=== PATIENT | female | born 1965 | race African-American/Black ===

== ENCOUNTER 2016-12-12 01:47 | Emergency (ER) | payer MEDICARE, MEDICAID ==
[~2016-12-12] VITALS: Ht 177.8 cm; Wt 181.0 kg
[~2016-12-12 01:47] MED LIST: ESCI10TA; LISI10TA5; MOME13HF2; PROVENTIL
[2016-12-12] MEDS ORDERED: MORPHINE SULFATE 4 MG/ML CPJ (NOT FOR IM USE) IV STA (01:57)
[2016-12-12] MEDS ORDERED: METHYLPREDNISOLONE SOD SUCC 125 MG/2 ML VIAL IV STA (01:57)
[2016-12-12] MEDS ORDERED: SODIUM CHLORIDE 0.9% 1,000 ML IV ONE (01:57)
[2016-12-12] MEDS ORDERED: ONDANSETRON HCL 4MG/2ML VIAL IV STA (01:57)
[2016-12-12] MEDS ORDERED: ALBUTEROL (0.083%) 2.5MG/3ML NEB HHN STA (01:57)
[2016-12-12] MEDS ORDERED: IPRATROPIUM BROMIDE (0.02%) 0.5MG/2.5ML NEB HHN STA (01:57)
[2016-12-12] MEDS ORDERED: LORAZEPAM 2MG/ML CPJ IV ONE (02:00)
[2016-12-12] MEDS ORDERED: ALBUTEROL (0.083%) 2.5MG/3ML NEB ONE (02:03)
[2016-12-12] MEDS ORDERED: IPRATROPIUM BROMIDE (0.02%) 0.5MG/2.5ML NEB ONE (02:03)
[2016-12-12 02:18] LABS: BASOPHILS % 1.1 % (0.0-2.0); EOSINOPHILS % 2.2 % (0.0-5.0); HEMOGLOBIN. 12.9 g/dL (12.0-16.0); LYMPHOCYTES % 40.6 % (20.0-50.0); MEAN CORPUSCULAR HEMOGLOBIN 27.6 pg (28.0-32.0); MEAN CORPUSCULAR HGB CONC 32.1 g/dL (31.0-37.0); MEAN CORPUSCULAR VOLUME 85.9 fL (81.0-99.0); MEAN PLATELET VOLUME 7.8 fl (7.4-10.4); NEUTROPHILS % 49.1 % (40.0-76.0); PLATELET 339 x1000/uL (130-400); RED BLOOD CELL COUNT 4.66 mill/uL (4.2-5.4); RED CELL DISTRIBUTION WIDTH 14.8 % (11.6-14.6); WHITE BLOOD COUNT 11.4 x1000/uL (4.5-11.0)
[2016-12-12 02:28] LABS: ALANINE AMINOTRANSFERASE 19 IU/L (13-61); ALBUMIN 3.5 g/dL (3.4-5.0); ANION GAP 12; CARBON DIOXIDE 28 mEq/L (21-32); CHLORIDE 107 mEq/L (98-107); INDEX HEMOLYSI 1 (1-3); INDEX ICTERIC 1 (1-4); INDEX LIPEMIC 1 (1-3); UREA NITROGEN BLOOD 20 mg/dL (7-21); eGFR > 60 mL/min (>60)
[2016-12-12 03:45] VITALS: BP 147/73
== END 2016-12-12 03:45 | disposition home or self-care (01) ==
LOC: ER 01:47
DX: J45.901 Unspecified asthma with (acute) exacerbation (principal); M54.5 Low back pain; I10 Essential (primary) hypertension; F32.9 Major depressive disorder, single episode, unspecified; Z90.49 Acquired absence of other specified parts of digestive tract
CPT/HCPCS: 36415; 71010; 80053; 85025; 94640; 96361; 96374; 96375; 99285; J2060; J2270; J2405; J2930; J7030; J7611

== ENCOUNTER 2017-09-27 06:23 | Emergency (ER) | payer MEDICARE, MEDICAID ==
[~2017-09-27] VITALS: Ht 157.5 cm; Wt 185.0 kg
[2017-09-27] MEDS ORDERED: IBUPROFEN 600MG TABLET PO ONE (09:00)
[2017-09-27] MEDS ORDERED: ACETAMINOPHEN 500MG TABLET PO ONE (09:00)
[2017-09-27 10:04] VITALS: BP 136/73
== END 2017-09-27 10:09 | disposition home or self-care (01) ==
LOC: ER 06:23
DX: H65.92 Unspecified nonsuppurative otitis media, left ear (principal); H57.8 Other specified disorders of eye and adnexa; R09.89 Other specified symptoms and signs involving the circulatory and respiratory systems; I10 Essential (primary) hypertension; F32.9 Major depressive disorder, single episode, unspecified; J45.909 Unspecified asthma, uncomplicated; Z88.8 Allergy status to other drugs, medicaments and biological substances
CPT/HCPCS: 99283

== ENCOUNTER 2022-04-04 17:14 | Inpatient (IN) | payer MEDICARE, MEDICAID ==
[~2022-04-04] VITALS: Ht 157.5 cm; Wt 213.6 kg
[~2022-04-04 17:14] MED LIST changes: +LISI10TA26; -LISI10TA5
[2022-04-04] MEDS ORDERED: METHYLPREDNISOLONE SOD SUCC 125 MG/2 ML VIAL IV STA (17:27)
[2022-04-04] MEDS ORDERED: IPRATROPIUM BROMIDE (0.02%) 0.5MG/2.5ML NEB HHN STA (17:27)
[2022-04-04] MEDS ORDERED: MAGNESIUM 2 G PREMIX 50 ML IV ONE (17:30)
[2022-04-04] MEDS: ALBUTEROL (0.083%) 2.5MG/3ML NEB HHN SCH ×3 (17:30→19:29)
[2022-04-04 17:47] LABS: BASOPHILS % 1.3 % (0.0-2.0); EOSINOPHILS % 1.6 % (0.0-5.0); HEMATOCRIT. 44.1 % (36.0-48.0); LYMPHOCYTES % 21.2 % (20.0-50.0); MEAN CORPUSCULAR HEMOGLOBIN 29.5 pg (28.0-32.0); MEAN CORPUSCULAR VOLUME 92.8 fL (81.0-99.0); MONOCYTES % 6.2 % (2.0-8.0); NEUTROPHILS % 69.7 % (40.0-76.0); PLATELET 228 x1000/uL (130-400); RED BLOOD CELL COUNT 4.75 mill/uL (4.2-5.4); RED CELL DISTRIBUTION WIDTH 17.4 % (11.6-14.6)
[2022-04-04 17:53] LABS: CHLORIDE 104 mEq/L (98-107)
[2022-04-04] MEDS ORDERED: FUROSEMIDE 40MG/4ML VIAL IVP ONE (18:30)
[2022-04-04] MEDS ORDERED: ACETAMINOPHEN 325MG TABLET PO PRN ×2 (19:30)
[2022-04-04] MEDS ORDERED: NITROGLYCERIN 0.4MG TABLET SL SL PRN (19:30)
[2022-04-04] MEDS ORDERED: METHYLPREDNISOLONE SOD SUCC 125 MG/2 ML VIAL IV NR (19:30)
[2022-04-04] MEDS ORDERED: MAGNESIUM 2 G PREMIX 50 ML IV NR (19:30)
[2022-04-04] MEDS ORDERED: FUROSEMIDE 40MG/4ML VIAL IVP NR (19:30)
[2022-04-04] MEDS ORDERED: CLONIDINE 0.1MG TABLET PO PRN (19:30)
[2022-04-04] MEDS ORDERED: ONDANSETRON HCL 4MG/2ML INJ IV PRN (19:30)
[2022-04-04] MEDS ORDERED: NA PHOS,M-B/NA PHOS,DI-BA ENEMA 118ML PR PRN (19:30)
[2022-04-04] MEDS ORDERED: IPRATROPIUM/ALBUTEROL 0.5-3(2.5)MG/3ML NEB NEB PRN (19:30)
[2022-04-04] MEDS ORDERED: MAGNESIUM/ALUMINUM HYDROXIDE/SIMETHICONE 30ML UDC PO PRN (19:30)
[2022-04-04] MEDS ORDERED: GUAIFENESIN 200MG/10ML SUGAR FREE UDC PO PRN (19:30)
[2022-04-04 20:11] LABS: ETHANOL BLOOD < 10 mg/dL; HDL CHOLESTEROL 33 mg/dL (40-59); LDL CHOLESTEROL 40 mg/dL (5-100); TOTAL IRON BINDING CAPACITY 381 ug/dL (250-450)
[2022-04-04 20:30] LABS: FOLIC ACID (FOLATE) SERUM 0.5 ng/mL (>5.38)
[2022-04-04] MEDS ORDERED: ENOXAPARIN 30MG/0.3ML SYR SUBCUT SCH (21:00)
[2022-04-04] MEDS: LISINOPRIL 20MG TABLET PO SCH (21:00)
[2022-04-04 21:08] LABS: *AMPHETAMINES SCREEN URINE NEGATIVE (NEGATIVE); *BARBITURATES SCREEN URINE NEGATIVE (NEGATIVE); *BENZODIAZEPINES SCREEN URINE NEGATIVE (NEGATIVE); *COCAINE SCREEN URINE NEGATIVE (NEGATIVE); CANNABINOID URINE SCREEN NEGATIVE (NEGATIVE); METHADONE URINE SCREEN NEGATIVE (NEGATIVE); OPIATES URINE SCREEN NEGATIVE (NEGATIVE); PHENCYCLIDINE URINE SCREEN NEGATIVE (NEGATIVE)
[2022-04-04] MEDS: FAMOTIDINE 20MG TABLET PO SCH (21:53)
[2022-04-04] MEDS: SPIRONOLACTONE 25MG TABLET PO SCH (21:53)
[2022-04-04 23:45] LABS: CREATINE KINASE MB FRACTION 1.7 ng/mL (0.5-3.6)
[2022-04-05] MEDS: KETOROLAC 15MG/ML VIAL IV PRN (04:40)
[2022-04-05 07:00] LABS: EOSINOPHILS % 1.8 % (0.0-5.0); HEMOGLOBIN. 13.2 g/dL (12.0-16.0); LYMPHOCYTES % 16.9 % (20.0-50.0); MEAN CORPUSCULAR HEMOGLOBIN 29.7 pg (28.0-32.0); MEAN CORPUSCULAR VOLUME 92.7 fL (81.0-99.0); MONOCYTES % 8.9 % (2.0-8.0); NEUTROPHILS % 71.4 % (40.0-76.0); PLATELET 211 x1000/uL (130-400); RED BLOOD CELL COUNT 4.43 mill/uL (4.2-5.4); RED CELL DISTRIBUTION WIDTH 16.9 % (11.6-14.6)
[2022-04-05 07:16] LABS: CREATINE KINASE MB FRACTION 1.9 ng/mL (0.5-3.6); PHOSPHORUS 4.2 mg/dL (2.5-4.9)
[2022-04-05] MEDS: LISINOPRIL 20MG TABLET PO SCH ×2 (09:00→21:32)
[2022-04-05 11:15] VITALS: BP 102/53
[2022-04-05 11:33] VITALS: BP 102/53
[2022-04-05] MEDS: IPRATROPIUM/ALBUTEROL 0.5-3(2.5)MG/3ML NEB HHN SCH ×2 (12:36→19:51)
[2022-04-05] MEDS: BUDESONIDE 0.5MG/2ML NEB HHN SCH ×2 (12:36→19:51)
[2022-04-05] MEDS: FAMOTIDINE 20MG TABLET PO SCH ×2 (14:03→21:33)
[2022-04-05] MEDS: SPIRONOLACTONE 25MG TABLET PO SCH ×2 (14:03→21:32)
[2022-04-05] MEDS: ASPIRIN 325MG EC TABLET PO SCH (14:03)
[2022-04-05] MEDS: ENOXAPARIN 40MG/0.4ML SYR SUBCUT SCH ×2 (14:03→21:31)
[2022-04-05] MEDS: FUROSEMIDE 40MG/4ML VIAL IVP SCH ×2 (14:05→21:31)
[2022-04-05 16:30] VITALS: BP 110/58
[2022-04-05] MEDS: MONTELUKAST SODIUM 10MG TABLET PO SCH (17:24)
[2022-04-05 20:00] VITALS: BP 114/57
[2022-04-06] VITALS: BP 107/58
[2022-04-06] MEDS: KETOROLAC 15MG/ML VIAL IV PRN (00:05)
[2022-04-06] MEDS: ZOLPIDEM TARTRATE 5MG TABLET PO PRN ×2 (00:13→22:20)
[2022-04-06] MEDS: IPRATROPIUM/ALBUTEROL 0.5-3(2.5)MG/3ML NEB HHN SCH ×4 (01:10→20:12)
[2022-04-06 04:00] VITALS: BP 107/66
[2022-04-06 06:17] LABS: CHLORIDE 96 mEq/L (98-107)
[2022-04-06] MEDS: BUDESONIDE 0.5MG/2ML NEB HHN SCH ×2 (07:58→20:09)
[2022-04-06 08:00] VITALS: BP 110/71
[2022-04-06] MEDS: LISINOPRIL 20MG TABLET PO SCH ×3 (09:00→20:31)
[2022-04-06] MEDS: ENOXAPARIN 40MG/0.4ML SYR SUBCUT SCH ×2 (09:00→20:29)
[2022-04-06] MEDS: FUROSEMIDE 40MG/4ML VIAL IVP SCH ×2 (11:42→20:29)
[2022-04-06] MEDS: SPIRONOLACTONE 25MG TABLET PO SCH ×2 (11:43→20:30)
[2022-04-06] MEDS: FAMOTIDINE 20MG TABLET PO SCH ×2 (11:43→20:30)
[2022-04-06] MEDS: ASPIRIN 325MG EC TABLET PO SCH (11:44)
[2022-04-06 12:00] VITALS: BP 115/69
[2022-04-06 16:00] VITALS: BP 120/72
[2022-04-06] MEDS: MONTELUKAST SODIUM 10MG TABLET PO SCH (18:49)
[2022-04-06 20:00] VITALS: BP 100/69
[2022-04-07] VITALS: BP 99/57
[2022-04-07] MEDS: IPRATROPIUM/ALBUTEROL 0.5-3(2.5)MG/3ML NEB HHN SCH ×4 (02:10→21:00)
[2022-04-07 04:00] VITALS: BP 101/60
[2022-04-07 08:00] VITALS: BP 108/57
[2022-04-07] MEDS: BUDESONIDE 0.5MG/2ML NEB HHN SCH ×2 (08:59→20:59)
[2022-04-07] MEDS: FAMOTIDINE 20MG TABLET PO SCH ×2 (10:49→21:22)
[2022-04-07] MEDS: SPIRONOLACTONE 25MG TABLET PO SCH ×2 (10:52→21:22)
[2022-04-07] MEDS: ASPIRIN 325MG EC TABLET PO SCH (10:53)
[2022-04-07] MEDS: ENOXAPARIN 40MG/0.4ML SYR SUBCUT SCH ×2 (10:58→21:22)
[2022-04-07] MEDS: LISINOPRIL 20MG TABLET PO SCH ×2 (10:58→21:00)
[2022-04-07] MEDS: FUROSEMIDE 40MG/4ML VIAL IVP SCH ×2 (11:06→21:22)
[2022-04-07 16:00] VITALS: BP 105/66
[2022-04-07] MEDS: MONTELUKAST SODIUM 10MG TABLET PO SCH (17:56)
[2022-04-07 20:00] VITALS: BP 99/59
[2022-04-08] VITALS: BP 99/60
[2022-04-08] MEDS: IPRATROPIUM/ALBUTEROL 0.5-3(2.5)MG/3ML NEB HHN SCH ×4 (01:49→21:48)
[2022-04-08 04:00] VITALS: BP 99/56
[2022-04-08] MEDS: DOCUSATE SODIUM 100MG CAPSULE PO PRN ×2 (06:23→14:05)
[2022-04-08 07:40] VITALS: BP 103/63
[2022-04-08] MEDS: BUDESONIDE 0.5MG/2ML NEB HHN SCH (07:42)
[2022-04-08] MEDS ORDERED: FURO-151 MT (08:48)
[2022-04-08] MEDS ORDERED: REV20 MT (08:48)
[2022-04-08] MEDS ORDERED: SPIR25TA MT (08:48)
[2022-04-08] MEDS ORDERED: FOLI-43 MT (08:48)
[2022-04-08] MEDS ORDERED: LISI10TA26 MT (08:48)
[2022-04-08] MEDS ORDERED: FOLIC ACID 1MG TABLET PO SCH (09:00)
[2022-04-08] MEDS: LISINOPRIL 20MG TABLET PO SCH ×2 (09:00→21:00)
[2022-04-08] MEDS: FAMOTIDINE 20MG TABLET PO SCH ×2 (09:39→20:34)
[2022-04-08] MEDS: ASPIRIN 325MG EC TABLET PO SCH ×2 (09:39→09:42)
[2022-04-08] MEDS: SPIRONOLACTONE 25MG TABLET PO SCH ×3 (09:39→20:34)
[2022-04-08] MEDS: FUROSEMIDE 40MG/4ML VIAL IVP SCH ×2 (09:53→20:34)
[2022-04-08] MEDS: ENOXAPARIN 40MG/0.4ML SYR SUBCUT SCH ×2 (09:54→20:35)
[2022-04-08] MEDS ORDERED: FOLIC ACID 1 MG in SODIUM CHLORIDE 0.9% 500 ML IV NR (10:30)
[2022-04-08 10:40] LABS: BG BASE EXCESS 18.5 mmol/L (-2.0-2.0); BG CARBOXYHEMOGLOBIN 1.6 % (0.5-1.5); BG DEOXYHEMOGLOBIN 32.9 % (0.0-5.0); BG FRACTION INSPIRED OXYGEN 21; BG HCO3 ACT 45.8 mmol/L (22.0-26.0); BG METHEMOGLOBIN 0.3 % (0.0-1.5); BG OXYGEN SATURATION 66.5 % (92.0-98.5); BG OXYHEMOGLOBIN 65.2 % (94.0-97.0); BG PCO2 64.5 mmHg (35.0-45.0); BG PH 7.469 (7.350-7.450); BG PO2 32.4 mmHg (75.0-100.0); BG TOTAL HEMOGLOBIN 13.6 g/dL (12.0-18.0); BG VENT MODE ROOM AIR
[2022-04-08 12:00] VITALS: BP 108/58
[2022-04-08 15:44] VITALS: BP 110/60
[2022-04-08] MEDS: MONTELUKAST SODIUM 10MG TABLET PO SCH (17:57)
[2022-04-08 20:00] VITALS: BP 92/53
[2022-04-09] VITALS: BP 104/52
[2022-04-09] MEDS: IPRATROPIUM/ALBUTEROL 0.5-3(2.5)MG/3ML NEB HHN SCH ×5 (01:53→21:31)
[2022-04-09 04:00] VITALS: BP 104/53
[2022-04-09 08:00] VITALS: BP 110/57
[2022-04-09] MEDS: FUROSEMIDE 40MG/4ML VIAL IVP SCH ×2 (09:33→20:45)
[2022-04-09] MEDS: SPIRONOLACTONE 25MG TABLET PO SCH ×2 (09:33→20:46)
[2022-04-09] MEDS: FAMOTIDINE 20MG TABLET PO SCH ×2 (09:33→20:46)
[2022-04-09] MEDS: ENOXAPARIN 40MG/0.4ML SYR SUBCUT SCH ×2 (09:33→20:46)
[2022-04-09] MEDS: FOLIC ACID 1MG TABLET PO SCH (09:33)
[2022-04-09] MEDS: LISINOPRIL 20MG TABLET PO SCH ×2 (09:34→20:57)
[2022-04-09 12:00] VITALS: BP 97/49
[2022-04-09] MEDS: BUDESONIDE 0.5MG/2ML NEB HHN SCH ×2 (13:46→21:31)
[2022-04-09] MEDS ORDERED: BISACODYL 5MG TABLET PO NR (15:00)
[2022-04-09] MEDS ORDERED: DOCUSATE SODIUM 250MG CAPSULE PO NR (15:00)
[2022-04-09 15:54] LABS: BG BASE EXCESS 18.5 mmol/L (-2.0-2.0); BG CARBOXYHEMOGLOBIN 1.6 % (0.5-1.5); BG DEOXYHEMOGLOBIN 28.2 % (0.0-5.0); BG FRACTION INSPIRED OXYGEN 21; BG HCO3 ACT 46.1 mmol/L (22.0-26.0); BG METHEMOGLOBIN 0.2 % (0.0-1.5); BG OXYGEN SATURATION 71.3 % (92.0-98.5); BG PCO2 66.3 mmHg (35.0-45.0); BG PO2 35.6 mmHg (75.0-100.0); BG SAMPLE SITE LEFT RADIAL; BG VENT MODE ROOM AIR
[2022-04-09 16:00] VITALS: BP 105/59
[2022-04-09] MEDS: MONTELUKAST SODIUM 10MG TABLET PO SCH (16:38)
[2022-04-09 20:00] VITALS: BP 96/48
[2022-04-10] VITALS: BP 95/51
[2022-04-10] MEDS: IPRATROPIUM/ALBUTEROL 0.5-3(2.5)MG/3ML NEB HHN SCH ×4 (02:30→21:28)
[2022-04-10 04:00] VITALS: BP 115/61
[2022-04-10] MEDS: BUDESONIDE 0.5MG/2ML NEB HHN SCH ×2 (07:35→21:27)
[2022-04-10 08:00] VITALS: BP 90/54
[2022-04-10] MEDS: LISINOPRIL 20MG TABLET PO SCH ×2 (09:00→20:09)
[2022-04-10] MEDS: FAMOTIDINE 20MG TABLET PO SCH ×2 (09:55→20:26)
[2022-04-10] MEDS: FOLIC ACID 1MG TABLET PO SCH (09:55)
[2022-04-10] MEDS: ASPIRIN 325MG EC TABLET PO SCH (09:55)
[2022-04-10] MEDS: FUROSEMIDE 40MG/4ML VIAL IVP SCH ×2 (09:56→20:26)
[2022-04-10] MEDS: SPIRONOLACTONE 25MG TABLET PO SCH ×2 (09:56→20:25)
[2022-04-10] MEDS: ENOXAPARIN 40MG/0.4ML SYR SUBCUT SCH ×2 (09:57→20:25)
[2022-04-10 12:00] VITALS: BP 104/54
[2022-04-10] MEDS ORDERED: ACETAZOLAMIDE SODIUM 500MG/VIAL IV NR (13:00)
[2022-04-10 16:00] VITALS: BP 100/52
[2022-04-10] MEDS: MONTELUKAST SODIUM 10MG TABLET PO SCH (16:02)
[2022-04-10 20:00] VITALS: BP 105/53
[2022-04-11] VITALS (8 sets, daily range): BP systolic 85–104; BP diastolic 40–57
[2022-04-11] MEDS: IPRATROPIUM/ALBUTEROL 0.5-3(2.5)MG/3ML NEB HHN SCH ×4 (02:15→20:18)
[2022-04-11] MEDS: BUDESONIDE 0.5MG/2ML NEB HHN SCH ×2 (08:12→20:18)
[2022-04-11] MEDS: ENOXAPARIN 40MG/0.4ML SYR SUBCUT SCH ×2 (08:57→21:17)
[2022-04-11] MEDS: ASPIRIN 325MG EC TABLET PO SCH (08:58)
[2022-04-11] MEDS: FOLIC ACID 1MG TABLET PO SCH (08:58)
[2022-04-11] MEDS: LISINOPRIL 20MG TABLET PO SCH ×2 (09:00→21:00)
[2022-04-11] MEDS: FAMOTIDINE 20MG TABLET PO SCH ×2 (09:04→21:16)
[2022-04-11] MEDS: SPIRONOLACTONE 25MG TABLET PO SCH ×2 (09:04→21:16)
[2022-04-11] MEDS: FUROSEMIDE 40MG/4ML VIAL IVP SCH ×2 (09:04→21:16)
[2022-04-11] MEDS: MONTELUKAST SODIUM 10MG TABLET PO SCH (17:31)
== END 2022-04-11 23:50 | DRG 291 ==
LOC: ER 17:14 → MICUSO 19:23 → SUPCPDRO 19:26 → EDBEDREQTM 19:48 → EDBEDREQ 19:48 → 6WST 04-05 11:52
PROVIDERS: ADMIT Internal Medicine; ATTEND Internal Medicine
DX: I11.0 Hypertensive heart disease with heart failure (principal); I50.43 Acute on chronic combined systolic (congestive) and diastolic (congestive) heart failure; J96.01 Acute respiratory failure with hypoxia; E44.1 Mild protein-calorie malnutrition; J44.1 Chronic obstructive pulmonary disease with (acute) exacerbation; J45.901 Unspecified asthma with (acute) exacerbation; Z68.45 Body mass index [BMI] 70 or greater, adult; R17 Unspecified jaundice; E66.2 Morbid (severe) obesity with alveolar hypoventilation; E83.51 Hypocalcemia; I27.20 Pulmonary hypertension, unspecified; D50.9 Iron deficiency anemia, unspecified; I07.1 Rheumatic tricuspid insufficiency; H26.9 Unspecified cataract; K59.00 Constipation, unspecified; F32.A Depression, unspecified; H93.13 Tinnitus, bilateral; E11.36 Type 2 diabetes mellitus with diabetic cataract; Z90.49 Acquired absence of other specified parts of digestive tract; Z20.822 Contact with and (suspected) exposure to COVID-19
CPT/HCPCS: 36415; 36600; 71045; 80048; 80053; 80061; 80305; 80320; 82375; 82550; 82553; 82607; 82746; 82805; 83036; 83540; 83550; 83735; 83880; 84100; 84443; 84484; 85025; 87426; 93005; 93306; 93970; 94640; 97110; 97162; 97166; 97535; 99291; J1120; J1650; J1885; J1940; J2930; J3475; J3490; J7040; J7626; U0003; U0005; G0480